=== PATIENT | male | born 2000 | race Caucasian/White ===

== ENCOUNTER 2021-06-28 13:36 | Outpatient (REF) | payer BC, SELFPAY ==
[2021-06-28 15:30] LABS: Binax Internal Control QC Valid; Binax Lot number: 9864; Binax Now Covid-19 Ag Negative (Negative)
== END 2021-06-28 13:37 | disposition home or self-care (01) ==
LOC: HO.LAB 13:36
PROVIDERS: Visit Provider Internal Medicine
DX: Z20.822 Contact with and (suspected) exposure to COVID-19 (principal)
CPT/HCPCS: 36415; C9803

== ENCOUNTER 2023-09-06 10:55 | Outpatient (AMB) | payer BC, SELFPAY ==
[2023-09-06 10:58] VITALS: BP 120/78; PULSE 80; O2SAT 98; BMI 24.7
--- NOTE | 2023-09-06 10:58 | MHC.PC.OV ---
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 Will order labs. 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 1. Little interest or pleasure in doing things: more than half the days 2. Feeling down, depressed, or hopeless: more than half the days 3. Trouble falling or staying asleep, or sleeping too much: more than half the days 4. Feeling tired or having little energy: more than half the days 5. Poor appetite or overeating: more than half the days 6. Feeling bad about yourself - or that you are a failure or have let yourself or your family down: nearly every day 7. Trouble concentrating on things, such as reading the newspaper or watching television: several days 8. Moving or speaking so slowly that other people could have noticed. Or the opposite - being so fidgety or restless that you have been moving around a lot more than usual: not at all 9. Thoughts that you would be better off or of hurting yourself in some way: not at all Total score: 14 Depression Screening Interpretation: Positive (will have BH contact pt) Depression Screening Done: Yes 49440 - PHQ-9 Billing: Yes Source: Developed by Drs. Klaus Riggins, Jourdan Fernandez and colleagues, with an educational santino from [employer]. Thrive Questionnaire Date Thrive assessed: 09/06/23 I am a: Patient What is your living situation today?: I have a steady place to live Within the past 12 months, did the food you bought not last and you didn't have the money to get more?: Never true Within the past 12 months, did you worry whether your food would run out before you got money to buy more?: Never true Do you have trouble paying for medicines?: No Do you have trouble getting transportation to medical appointments?: No Do you have trouble paying your heating and electricity bill?: No Do you have trouble taking care of your child, family member or friend?: No Do you have trouble with day-to-day activities such as bathing, preparing meals, shopping, managing finances, etc.?: No Are you currently unemployed and looking for a job?: No Are you interested in more education?: No Please select the resources that you would like help with: None Currently or been in a relationship where the following occur: no concerns reported THRIVE Score: 0 JOAQUIN-7 AMB Questionnaire JOAQUIN-7 Date JOAQUIN - 7 assessed: 09/06/23 Feeling nervous, anxious, or on edge: 3 = Nearly every day Not being able to stop or control worryin = Nearly every day Worrying too much about different things: 3 = Nearly every day Trouble relaxin = Nearly every day Being so restless that it is hard to sit still: 1 = Several days Becoming easily annoyed or irritable: 1 = Several days Feeling afraid as if something awful might happen: 3 = Nearly every day Total JOAQUIN-7 score (0-4 normal; 5-9 mild; 10-14 moderate; 15-21 severe): 17 Source: Developed by Drs. Klaus Riggins, Jourdan Fernandez and colleagues, with an educational santino from [employer]. JOAQUIN-7 Assessment Billing JOAQUIN-7 Assessment Tool: JOAQUIN-7 Assessment 52236 Review of Systems Const Denies chills and Denies fever(s) Eyes Denies blurry vision ENT Denies vertigo, Denies dizziness and Denies sore throat Card Denies chest pain at rest, Denies chest pain with activity, Denies diaphoresis, Denies dyspnea and Denies dyspnea on exertion Resp Denies cough, Denies dyspnea, Denies dyspnea on exertion and Denies wheezing GI Denies abdominal pain, Denies melena, Denies hematochezia, Denies constipation, Denies diarrhea and Denies loose stools Denies hematuria Musc Denies numbness and Denies tingling Skin/Breast Denies lesions Neuro Denies vertigo, Denies dizziness, Denies numbness and Denies tingling Psych Denies anxiety, Denies depression, Denies homicidal ideation, Denies suicidal ideation and Denies other (substance abuse) Aller/Immun Denies wheezing Physical exam (Primary Care) Vital Signs: Last Vital Signs Pulse 80 09/06/23 10:58 BP 120/78 09/06/23 10:58 Pulse Ox 98 09/06/23 10:58 Oxygen Delivery Method Room Air 09/06/23 10:58 BMI result Body Mass Index 24.7 Tobacco/Smoking Status: Tobacco use Status Tobacco use date assessed 09/06/23 09/06/23 11:01 Patient Tobacco Use Status Never used Tobacco 09/06/23 11:00 e-Cigarette/Vaping Use Never Used 09/06/23 11:00 Depression Screening Interpretation: Positive (will have BH contact pt) Thrive Assessment: Date of Thrive Assessment Date Thrive assessed 09/03/22 09/06/23 11:00 Currently or been in a relationship where the following occur: no concerns reported Const General: cooperative Nutritional Appearance: well nourished Orientation/consciousness: patient oriented x3 HENMT Head: Yes normal to inspection, Yes normocephalic and Yes atraumatic Ears: TM's normal bilaterally Eyes General: appearance normal, both eyes and all related structures Alignment and Position: alignment normal and position normal Neck Neck: Yes normal visual inspection and Yes no lymphadenopathy Thyroid: Thyroid normal Resp Effort & Inspection: normal respiratory effort Auscultation: clear to auscultation bilaterally Cardio Rate: regular rate Rhythm: regular rhythm Heart sounds: S1 normal heart sound present, S2 normal heart sound present and no murmurs GI Palpation (GI): Soft to palpation and nontender Auscultation: normal bowel sounds Male General Exam: Yes normal external exam Penis: normal penis Scrotum: scrotum normal, testes descended bilaterally and no inguinal hernias Testes: no testicular mass Skin Rashes: no rashes Neuro General: patient oriented x3, moves all extremities, no focal motor deficits and deep tendon reflexes 2+ bilaterally Romberg Test: Negative Extrem Right lower extremity: no edema Left lower extremity: no edema Psych Appearance: grossly normal Mental Status: mental status grossly normal Speech and movement: Normal speech and movement present Affect: normal affect Attitude: cooperative Thought process: Normal thought process present Thought content: Normal thought content present Insight: Good insight present (Psych) Judgement: Good judgement present (Psych) Assessment and Plan Assessment & Plan (1) Physical exam: Code(s): Z. - Encounter for general adult medical examination without abnormal findings Plan: labs ordered (2) Anxiety and depression: Code(s): F41.9 - Anxiety disorder, unspecified; F32.A - Depression, unspecified Plan: will have our team contact pt, denies any si or hi Plan The patient agreed to the use of a medical radiation tech for this encounter. Scribed for ISADORA Franklin by Aimee Macdonald medical radiation tech, on 09/06/2023 at 11:15 EST. Orders: Orders Complete Blood Count Auto Diff Today Z. - Encounter for general adult medical examination without abnormal findings Comprehensive [place]. Panel Fast Today . - Encounter for general adult medical examination without abnormal findings Lipid Panel Today Z. - Encounter for general adult medical examination without abnormal findings Complete Blood Count Auto Diff 11 Months . - Encounter for general adult medical examination without abnormal findings Comprehensive [place]. Panel Fast 11 Months . - Encounter for general adult medical examination without abnormal findings TSH reflex Free T4 11 Months Z. - Encounter for general adult medical examination without abnormal findings UA CC w/rflx Micro + Cult 11 Months Z. - Encounter for general adult medical examination without abnormal findings TSH reflex Free T4 Today Z.00 - Encounter for general adult medical examination without abnormal findings UA CC w/rflx Micro + Cult Today Z. - Encounter for general adult medical examination without abnormal findings Lipid Panel 11 Months Z00.00 - Encounter for general adult medical examination without abnormal findings Coding Level of Care Code Est Pt Prev Care 18-39y(15766) Diagnoses Physical exam Z00.00 Anxiety and depression F41.9; F32.A Additional Codes JOAQUIN-7 Assessment Billing - JOAQUIN-7 Assessment Tool: JOAQUIN-7 Assessment 65983 ([id number])
== END 2023-09-06 11:18 | disposition home or self-care (01) ==
PROVIDERS: Visit Provider Nurse Practitioner Family
DX: Z00.00 Encounter for general adult medical examination without abnormal findings (principal); F41.9 Anxiety disorder, unspecified; F32.A Depression, unspecified
CPT/HCPCS: 99395

== ENCOUNTER 2023-12-27 09:38 | Outpatient (AMB) | payer BC, SELFPAY ==
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
[2023-12-27 10:25] VITALS: BP 122/80; PULSE 77; TEMP 36.6; O2SAT 99; BMI 25.6
--- NOTE | 2023-12-27 10:25 | AM.OFFWIN_ITS ---
Intake Vital Signs 12/27/23 10:25 Height 5 ft 4 in Weight 149 lb 6 oz BMI 25.6 BP 122/80 Blood Pressure Location Lt brachial Position Sitting Pulse 77 Pulse Source Pulse Oximeter Temp 97.8 F Temp Source Oral Pulse Oximetry (%) 99 Oxygen Delivery Method Room Air Intake Visit Reasons: EP cough, chest pain due to cough Intake Note: pt is here for cough, chest tightness due to cough Patient Tobacco Use Status: Never used Tobacco Allergies No Known Allergies Allergy (Verified 12/27/23 10:25) Do you need a note to return to daycare/school/sports/work: No HPI HPI Comments History of Present Illness Details Patient is a 23-year-old male complaining a lingering cough times 3-4 weeks. He states he was really sick about a 3-4 weeks ago with body aches, a belly ache, a cough and a stuffy head but that all resolved and he just has a lingering cough. He describes the cough as a dry cough which is worse at night. He states he tried taking a liquid medication, he is unsure what that medication is but that it did not help. 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 He denies any fevers, chest pain, shortness of breath, head congestion, ear pain or sinus pain. 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 Current occupational exposures/hazards: No Cognitive needs: No Hearing needs: No Vision needs: No Review of Systems Const All systems reviewed & are unremarkable except as noted in HPI and below Physical Exam Vital Signs: Last Vital Signs Temp 97.8 F 12/27/23 10:25 Pulse 77 12/27/23 10:25 BP 122/80 12/27/23 10:25 Pulse Ox 99 12/27/23 10:25 Oxygen Delivery Method Room Air 12/27/23 10:25 BMI result Body Mass Index 25.6 Const General: cooperative, healthy appearing, comfortable and no acute distress Orientation/consciousness: patient oriented x3 Limitations: no limitations HEENT Head: Yes normal to inspection Ears: external ears normal and TM's normal bilaterally General nose exam: Normal external nose present, Normal nares present and No nasal discharge present Face and sinus: Yes normal facial exam and Yes sinuses nontender Mouth: Normal oral and palatal mucosa present and moist mucous membranes Throat: Yes posterior oropharynx abnormal (Erythematous) Eyes General: appearance normal, both eyes and all related structures Neck Neck: Yes normal visual inspection Resp Effort & Inspection: normal respiratory effort, able to speak in complete sentences, Actively coughing, no respiratory distress, not tachypneic, no tripod positioning and no use of accessory muscles Auscultation: clear to auscultation bilaterally Cardio Rate: regular rate Rhythm: regular rhythm Heart sounds: normal S1 and S2 Skin General skin exam: no rashes or lesions noted Neuro General: patient oriented x3 Extrem General: Yes normal to inspection and Yes no clubbing, cyanosis or edema Assessment & Plan Assessment & Plan (1) Atypical pneumonia: Code(s): J18.9 - Pneumonia, unspecified organism Plan: sent zpak and inhaler to pharmacy. Patient wanted me to fill out [place] paperwork, I did not feel it was necessary but told him if he does, I recommended he follow-up with his PCP. He states he feels like he can go to work but his employer gave it to him to have it filled out. Plan see above Medications: New albuterol sulfate 90 mcg/actuation 2 puffs inhalation Q6H PRN 8.5 grams 0RF shortness of breath or wheezing or cough azithromycin For 250 mg dose pack: take 500 mg today (day 1), then 250 mg for 4 days (days 2-5) PO 6 tabs 0RF Coding Level of Care Code Est Pt Level 3 (18805) Diagnoses Atypical pneumonia J18.9
== END 2023-12-27 11:06 | disposition home or self-care (01) ==
PROVIDERS: PCP Nurse Practitioner Family; Visit Provider Physician Assistant
DX: J18.9 Pneumonia, unspecified organism (principal)
CPT/HCPCS: 99213

== ENCOUNTER 2024-02-24 08:02 | Outpatient (AMB) | payer BC, SELFPAY ==
[2024-02-24 08:09] VITALS: BP 130/80; PULSE 118; O2SAT 98; BMI 26.4
--- NOTE | 2024-02-24 08:09 | MHC.OFFWIV ---
Intake Vital Signs 02/24/24 08:09 02/24/24 08:43 Height 5 ft 4 in Weight 154 lb BMI 26.4 BP 130/80 Blood Pressure Location Rt brachial Position Sitting Pulse 118 H 92 Pulse Source Pulse Oximeter Pulse Oximeter Pulse Oximetry (%) 98 Oxygen Delivery Method Room Air Intake Visit Reasons: EP-stomach pain, unable to digest food Intake Note: Patient here for stomach pain and issues digesting food which has been going on for about 3-4 days. Patient Tobacco Use Status: Never used Tobacco Allergies No Known Allergies Allergy (Verified 02/24/24 08:11) Do you need a note to return to daycare/school/sports/work: No HPI HPI Comments History of Present Illness Details Patient is a 23-year-old male complaining of abdominal uncomfortableness in his upper abdomen for the last 3-4 days. He states 4 days ago he had some diarrhea, he denies any bloody or black stools but he states that seems to have resolved and his stools are now formed. However, he states that he has this uncomfortableness and sharp shooting pains when he eats. He states that yesterday all he ate was some applesauce and some bread. He tried to take some Tums but that did not help. 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 He denies any fevers, nausea or vomiting. 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 Current occupational exposures/hazards: No Cognitive needs: No Hearing needs: No Vision needs: No Review of Systems Const All systems reviewed & are unremarkable except as noted in HPI and below Physical Exam Vital Signs: Last Vital Signs Pulse 118 H 02/24/24 08:09 BP 130/80 02/24/24 08:09 Pulse Ox 98 02/24/24 08:09 Oxygen Delivery Method Room Air 02/24/24 08:09 BMI result Body Mass Index 26.4 Const General: cooperative, healthy appearing, comfortable, no acute distress and well developed Orientation/consciousness: patient oriented x3 Limitations: no limitations HEENT Head: Yes normal to inspection Ears: hearing grossly normal bilaterally General nose exam: Normal external nose present Face and sinus: Yes normal facial exam Eyes General: appearance normal, both eyes and all related structures Neck Neck: Yes normal visual inspection and Yes full ROM Resp Effort & Inspection: normal respiratory effort and able to speak in complete sentences Auscultation: clear to auscultation bilaterally Cardio Rate: regular rate Rhythm: regular rhythm Heart sounds: normal S1 and S2 GI Other: Negative Cabral's Inspection: Yes normal to inspection Palpation (GI): Soft to palpation, nontender, no guarding, No hepatosplenomegaly present and No Rebound tenderness present Skin General skin exam: no rashes or lesions noted Neuro General: patient oriented x3 Extrem General: Yes normal to inspection Assessment & Plan Assessment & Plan (1) Abdominal pain: Code(s): R10.9 - Unspecified abdominal pain Qualifiers: Abdominal location: upper abdomen, unspecified Qualified Code(s): R10.10 - Upper abdominal pain, unspecified Plan: Recheck of heart rate was 92 and regular. Likely secondary to the energy drink he drank a few hours ago. His symptoms seem to be resolving, recommended cutting back on the energy drinks and starting a BRAT diet. He could also try some Pepto-Bismol or Gas-X for symptomatic relief. Advised if his abdominal pain gets worse or he is unable to eat or drink, he should go to the emergency department. (2) Viral gastroenteritis: Code(s): A08.4 - Viral intestinal infection, unspecified Plan: see above Plan see above Coding Level of Care Code Est Pt Level 3 (25027) Diagnoses Pain of upper abdomen R10.10 Abdominal location: upper abdomen, unspecified Viral gastroenteritis A08.4
[2024-02-24 08:43] VITALS: PULSE 92
== END 2024-02-24 08:57 | disposition home or self-care (01) ==
PROVIDERS: PCP Nurse Practitioner Family; Visit Provider Physician Assistant
DX: R10.10 Upper abdominal pain, unspecified (principal); A08.4 Viral intestinal infection, unspecified
CPT/HCPCS: 99213

== ENCOUNTER 2024-09-26 10:45 | Outpatient (AMB) | payer BC, SELFPAY ==
[2024-09-26 10:47] VITALS: BP 142/80; PULSE 134; O2SAT 98; BMI 27.1
--- NOTE | 2024-09-26 10:47 | A.OFFPC_ITS ---
Vital Signs 09/26/24 10:47 Height 5 ft 4 in Weight 158 lb BMI 27.1 BP 142/80 H Blood Pressure Location Lt brachial Position Sitting Pulse 134 H Pulse Source Pulse Oximeter Pulse Oximetry (%) 98 Oxygen Delivery Method Room Air Intake Visit Reasons: PE Ear Specialist Required: No Accompanied by: Self / Same As Patient Allergies No Known Allergies Allergy (Verified 09/26/24 11:45) Medication List - Last Reconciled 09/26/24 by CHARLOTTE Pritchett buspirone 5 mg PO BID 30 days Tobacco use date assessed: 09/26/24 Dental Screening Dental Screen Date: 09/26/24 Did you have a dental visit in the last 12 months?: Yes Did you have a dental problem in the last 6 months where you did not have access to dental care?: No Was dental information given to patient?: Patient has dentist HPI PE HPI Details History of Present Illness The patient is a 23-year-old male presenting with anxiety. He expresses ongoing underlying anxiety, specifically noting increased stress when visiting medical offices. He reports that he is feeling very anxious today, which is visibly noticeable in the room. The patient denies having experiences of depression, suicidal ideation, or homicidal thoughts. Anxiety appears to be a chronic issue for him, especially in healthcare environments. While he has sinus tachycardia, he denies any associated chest pain, difficulty breathing, abdominal discomfort, or gastrointestinal issues like constipation or diarrhea. His anxiety does not seem to have been managed by any treatment prior to this visit. Health Maintenance Social History - Employment, housing, and education sta tus: Not discussed - Family status and planning: Not discus sed - Substance use: Not discussed - Exercise and activity level: Not discu ssed - Nutritional intake: Not discussed - Weight management: Not discussed Review of Systems - Cardiovascular: Denies chest pain or s hortness of breath. - Gastrointestinal: Denies abdominal buck n, bowel movement changes, including constipation and diarrhea. - Psychiatric: Reports anxiety; denies d epression, suicidal ideation, and homicidal thoughts. Physical Exam General: Cooperative, healthy appearing, anxious, no acute distress and well developed Orientation: Patient oriented x3 Limitations: No limitations Head: Normal to inspection Ears: Hearing grossly normal bilaterally Nose: Normal external nose present Face and sinus: Normal facial exam Eyes: Appearance normal, both eyes and all related structures Neck: Normal visual inspection and Yes full ROM Respiratory: Normal respiratory effort and able to speak in complete sentences. Clear to auscultation bilaterally Cardiovascular: Sinus tachycardia GI: Normal to inspection. Soft to palpation and nontender Skin: No rashes or lesions noted Neuro: Patient oriented x3 Extremities: Normal to inspection Results - EKG: Performed today, revealing sinus tachycardia. Plan To manage the patient's anxiety, I have initiated a low-dose regimen of buspirone. This is chosen due to its specific benefits in treating anxiety without the dependency risks seen with other medications such as benzodiazepines. Monitoring the patient's response to medication is planned with a follow-up appointment via telehealth in two months. The anxiety-related sinus tachycardia will also be observed to determine if it decreases as the anxiety is managed. There is no current plan for direct intervention concerning the sinus tachycardia, as it is presumed secondary to anxiety. The potential benefits, risks, and side effects of buspirone were discussed to ensure the patient's comprehension. Discussion Notes I discussed with the patient the initiation of buspirone, a non-benzodiazepine anxiolytic, explaining it was chosen to manage his anxiety due to its lower risk of dependency. The benefits, including an expected reduction in anxiety symptoms and potential improvement in sinus tachycardia as his anxiety level decreases, were highlighted. Side effects of buspirone, such as dizziness or nausea, were explained, and the patient was advised to report any adverse effects. The patient agreed to the treatment plan, and a follow-up telehealth visit in two months was scheduled. We will reassess the anxiety and sinus tachycardia at that time, adjusting treatment as needed based on his response to buspirone. Patient Instructions - Start taking buspirone as directed. - Monitor for any side effects like dizz iness or nausea and report them if they occur. - Attend follow-up telehealth appointizaiah campuzano in approximately two months. - Continue monitoring heart rate and anx iety levels for any changes. - Seek immediate attention if experienci ng severe chest pain, difficulty breathing, or other concerning symptoms. 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 1. Little interest or pleasure in doing things: not at all 2. Feeling down, depressed, or hopeless: not at all 3. Trouble falling or staying asleep, or sleeping too much: not at all 4. Feeling tired or having little energy: not at all 5. Poor appetite or overeating: not at all 6. Feeling bad about yourself - or that you are a failure or have let yourself or your family down: not at all 7. Trouble concentrating on things, such as reading the newspaper or watching television: not at all 8. Moving or speaking so slowly that other people could have noticed. Or the opposite - being so fidgety or restless that you have been moving around a lot more than usual: not at all 9. Thoughts that you would be better off or of hurting yourself in some way: not at all Total score: 0 Depression Screening Interpretation: Negative Depression Screening Done: Yes 66832 - PHQ-9 Billing: Yes Source: Developed by Drs. Klaus Riggins, Liz Chapman, Jourdan Cerda and colleagues, with an educational santino from [employer]. Thrive Questionnaire Date Thrive assessed: 09/26/24 I am a: Patient What is your living situation today?: I have a steady place to live Within the past 12 months, did the food you bought not last and you didn't have the money to get more?: Never true Within the past 12 months, did you worry whether your food would run out before you got money to buy more?: Never true Do you have trouble paying for medicines?: No Do you have trouble getting transportation to medical appointments?: No Do you have trouble paying your heating and electricity bill?: No Do you have trouble taking care of your child, family member or friend?: No Do you have trouble with day-to-day activities such as bathing, preparing meals, shopping, managing finances, etc.?: No Are you currently unemployed and looking for a job?: No Are you interested in more education?: No Please select the resources that you would like help with: None Currently or been in a relationship where the following occur: No concerns reported THRIVE Score: 0 AUDIT C Alcohol Use Questionnaire (AUDIT-C) 1. How often do you have a drink containing alcohol?: 2-4 times a month 2. How many drinks containing alcohol do you have on a typical day when you are drinking?: 3 or 4 3. How often do you have six or more drinks on one occasion?: Less than monthly Total Score: 4 Score Reviewed/Action Taken: Yes JOAQUIN-7 AMB Questionnaire JOAQUIN-7 Date JOAQUIN - 7 assessed: 09/26/24 Feeling nervous, anxious, or on edge: 1 = Several days Not being able to stop or control worryin = Several days Worrying too much about different things: 1 = Several days Trouble relaxin = Several days Being so restless that it is hard to sit still: 1 = Several days Becoming easily annoyed or irritable: 0 = Not at all Feeling afraid as if something awful might happen: 0 = Not at all Total JOAQUIN-7 score (0-4 normal; 5-9 mild; 10-14 moderate; 15-21 severe): 5 Source: Developed by Drs. Klaus Riggins, Liz Chapman, Jourdan Cerda and colleagues, with an educational santino from [employer]. JOAQUIN-7 Assessment Billing JOAQUIN-7 Assessment Tool: JOAQUIN-7 Assessment 81258 Physical exam (Primary Care) Vital Signs: Last Vital Signs Pulse 134 H 09/26/24 10:47 BP 142/80 H 09/26/24 10:47 Pulse Ox 98 09/26/24 10:47 Oxygen Delivery Method Room Air 09/26/24 10:47 BMI result Body Mass Index 27.1 Tobacco/Smoking Status: Tobacco use Status Tobacco use date assessed 09/26/24 09/26/24 10:49 Patient Tobacco Use Status Never used Tobacco 09/26/24 10:49 e-Cigarette/Vaping Use Never Used 09/26/24 10:49 PHQ-9: PHQ-9 Score PHQ-9: Total score 0 09/26/24 10:49 Depression Screening Interpretation: Negative Thrive Assessment: Date of Thrive Assessment Date Thrive assessed 04/01/25 04/01/25 10:49 Currently or been in a relationship where the following occur: No concerns reported Coding Level of Care Code Est Pt Prev Care 18-39y(07570) Diagnoses Physical exam Z00.00 Additional Codes JOAQUIN-7 Assessment Billing - JOAQUIN-7 Assessment Tool: JOAQUIN-7 Assessment 20545 ([id number]) PHQ-9 - 30823 - PHQ-9 Billing: Yes ([id number]) Assessment & Plan Assessment & Plan (1) Physical exam: Code(s): Z00.00 - Encounter for general adult medical examination without abnormal findings Category: Medical Plan . Orders: Orders Comprehensive Gilbert. Panel Fast Today Z00.00 - Encounter for general adult medical examination without abnormal findings TSH reflex Free T4 Today Z00.00 - Encounter for general adult medical examination without abnormal findings Complete Blood Count Auto Diff Today Z00.00 - Encounter for general adult medical examination without abnormal findings UA CC w/rflx Micro + Cult Today Z00.00 - Encounter for general adult medical examination without abnormal findings Lipid Panel Today Z00.00 - Encounter for general adult medical examination without abnormal findings Medications: New buspirone 5 mg PO BID 30 days 60 tabs 2RF
== END 2024-09-26 11:40 | disposition home or self-care (01) ==
LOC: HO.HMCC 10:46
PROVIDERS: PCP Nurse Practitioner Family; Visit Provider Nurse Practitioner Family
DX: Z00.00 Encounter for general adult medical examination without abnormal findings (principal)

== ENCOUNTER → 2024-09-26 10:45 | Outpatient (BNVA) | payer BC, SELFPAY | PROVIDERS: PCP Nurse Practitioner Family; Visit Provider Nurse Practitioner Family | DX: Z00.00 Encounter for general adult medical examination without abnormal findings (principal); F41.9 Anxiety disorder, unspecified | CPT/HCPCS: 96127 ==

== ENCOUNTER 2024-10-24 12:53 | Outpatient (AMB) | payer BC, SELFPAY ==
--- NOTE | 2024-10-24 12:55 | MHC.PC.OV ---
Vital Signs 10/24/24 12:56 10/24/24 13:25 Height 5 ft 4 in Weight 166 lb 2 oz BMI 28.5 BP 142/90 H 136/80 Blood Pressure Location Lt brachial Lt brachial Position Sitting Sitting Pulse 106 H Pulse Source Pulse Oximeter Pulse Oximetry (%) 99 Oxygen Delivery Method Room Air Intake Visit Reasons: urology referral & forms Allergies No Known Allergies Allergy (Verified 10/24/24 13:14) Medication List - Last Reconciled 10/24/24 by ISADORA Pritchett buspirone 7.5 mg PO BID 30 days Tobacco use date assessed: 10/24/24 Dental Screening Dental Screen Date: 10/24/24 Did you have a dental visit in the last 12 months?: Yes Did you have a dental problem in the last 6 months where you did not have access to dental care?: No Was dental information given to patient?: Patient has dentist HPI urology referral & forms HPI Details Chief Complaint Persistent urinary frequency alongside management of anxiety symptoms. History of Present Illness The patient is a 23-year-old male presenting with follow-up for anxiety management and persistent urinary frequency. Recently, initiation of buspirone at 5 mg twice daily has occurred for anxiety symptoms, which he reports has had a beneficial effect. Despite improvement in anxiety, urinary frequency persists with occurrences reaching 10 to 12 times daily, though he denies associated dysuria or other urinary symptoms. The patient recognizes potential anxiety influences on these urinary symptoms yet considers referral for further urological evaluation necessary to ascertain the underlying cause. An emphasized need for lab work completion, including urinalysis, remains as per an earlier order. NOTE: he did notice a slight decrease in urinary frequency with use of buspirone. Social History Health Maintenance Review of Systems - Psychiatric: Reports anxiety; denies suicidal or homicidal ideations. - Genitourinary: Reports frequent urination (10-12 times a day); denies dysuria. Physical Exam General: Cooperative, healthy appearing, comfortable, no acute distress and well developed Orientation: Patient oriented x3 Limitations: No limitations Head: Normal to inspection Ears: Hearing grossly normal bilaterally Nose: Normal external nose present Face and sinus: Normal facial exam Eyes: Appearance normal, both eyes and all related structures Neck: Normal visual inspection and Yes full ROM Respiratory: Normal respiratory effort and able to speak in complete sentences. Clear to auscultation bilaterally Cardiovascular: Regular rate and rhythm. Normal S1 and S2 GI: Normal to inspection. Soft to palpation and nontender Skin: No rashes or lesions noted Neuro: Patient oriented x3 Extremities: Normal to inspection Results - Labs: Urinalysis ordered but no results discussed. Plan 1. 5 mg twice daily, addressing anxiety effectively. Referral to urology is arranged to evaluate persistent urinary frequency and explore diagnoses like interstitial cystitis. The patient is reminded of the need to complete lab tests, particularly a urinalysis, to aid in further assessment.: Discussion Notes I discussed with the patient the efficacy of buspirone in managing symptoms of anxiety, noting its positive impact to date. A decision was made to increase the dose to 7.5 mg twice daily to further improve anxiety management. We explored the possibility that his urinary frequency may have an anxiety component, though a thorough urological evaluation is warranted to rule out other causes such as interstitial cystitis. I emphasized the importance of completing the urinalysis to aid in diagnosis and discussed the referral process to a urologist. All potential treatment benefits and risks were reviewed, ensuring the patient understands and consents to the proposed management plan. Patient Instructions - Continue taking buspirone, now increased to 7.5 mg, twice daily as prescribed. - Complete the urinalysis lab work as previously ordered. - Follow up with a urologist for further evaluation of urinary frequency. - Monitor urinary symptoms and report any changes or new symptoms promptly. - Return to clinic for follow-up after urology consultation or if symptoms worsen. 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 Current occupational exposures/hazards: No Cognitive needs: No Hearing needs: No Vision needs: No Questionnaire Thrive Questionnaire Date Thrive assessed: 10/24/24 I am a: Patient What is your living situation today?: I have a steady place to live Within the past 12 months, did the food you bought not last and you didn't have the money to get more?: Never true Within the past 12 months, did you worry whether your food would run out before you got money to buy more?: Never true Do you have trouble paying for medicines?: No Do you have trouble getting transportation to medical appointments?: No Do you have trouble paying your heating and electricity bill?: No Do you have trouble taking care of your child, family member or friend?: No Do you have trouble with day-to-day activities such as bathing, preparing meals, shopping, managing finances, etc.?: No Are you currently unemployed and looking for a job?: No Are you interested in more education?: No Please select the resources that you would like help with: None Currently or been in a relationship where the following occur: No concerns reported THRIVE Score: 0 AUDIT C Alcohol Use Questionnaire (AUDIT-C) 1. How often do you have a drink containing alcohol?: 2-4 times a month 2. How many drinks containing alcohol do you have on a typical day when you are drinking?: 3 or 4 3. How often do you have six or more drinks on one occasion?: Less than monthly Total Score: 4 Score Reviewed/Action Taken: Yes JOAQUIN-7 AMB Questionnaire JOAQUIN-7 Date JOAQUIN - 7 assessed: 09/26/24 Source: Developed by Drs. Klaus Riggins, Liz Chapman, Jourdan Cerda and colleagues, with an educational santino from [employer]. Physical exam (Primary Care) Vital Signs: Last Vital Signs Pulse 106 H 10/24/24 12:56 BP 142/90 H 10/24/24 12:56 Pulse Ox 99 10/24/24 12:56 Oxygen Delivery Method Room Air 10/24/24 12:56 BMI result Body Mass Index 28.5 Tobacco/Smoking Status: Tobacco use Status Tobacco use date assessed 10/24/24 10/24/24 12:58 Patient Tobacco Use Status Never used Tobacco 10/24/24 12:58 e-Cigarette/Vaping Use Never Used 10/24/24 12:58 Thrive Assessment: Date of Thrive Assessment Date Thrive assessed 10/24/24 10/24/24 13:02 Currently or been in a relationship where the following occur: No concerns reported Coding Level of Care Code Est Pt Level 3 (64451) Diagnoses Increased urinary frequency R35.0 Anxiety F41.9 Assessment & Plan Assessment & Plan (1) Increased urinary frequency: Code(s): R35.0 - Frequency of micturition Category: Medical Plan: . (2) Anxiety: Code(s): F41.9 - Anxiety disorder, unspecified Category: Medical Plan . Orders: Referrals Urology Referral R35.0 - Frequency of micturition Medications: Changed From buspirone 5 mg PO BID 30 days 60 tabs 2RF To buspirone 7.5 mg PO BID 30 days 60 tabs 3RF
[2024-10-24 12:56] VITALS: BP 142/90; PULSE 106; O2SAT 99; BMI 28.5
[2024-10-24 13:25] VITALS: BP 136/80
== END 2024-10-24 13:33 | disposition home or self-care (01) ==
LOC: HO.HMCC 12:54
PROVIDERS: PCP Nurse Practitioner Family; Visit Provider Nurse Practitioner Family
DX: R35.0 Frequency of micturition (principal); F41.9 Anxiety disorder, unspecified

== ENCOUNTER → 2024-10-24 12:53 | Outpatient (BNVA) | payer BC, SELFPAY | PROVIDERS: PCP Nurse Practitioner Family; Visit Provider Nurse Practitioner Family ==

== ENCOUNTER 2024-11-28 08:02 | Outpatient (REF) | payer BC, SELFPAY ==
[2024-11-28 10:20] LABS: MANUAL DIFF FLAG NO
[2024-11-28 10:45] LABS: Appearance Urine Clear; Basophils Absolute Auto 0.1 X10*3/uL (0.0-0.2); Basophils Percent Auto 1.2 % (0-2); Color Urine Yellow; Eosinophils Absolute Auto 0.3 X10*3/uL (0.0-0.4); Eosinophils Percent Auto 3.9 % (0-4); Glucose Urine UA Negative (Negative); Hematocrit 41.1 % (42.0-52.0); Hemoglobin 14.2 g/dl (14.0-18.0); Imm Gran Abs Auto 0.02 X10*3/uL (0.00-0.03); Imm Gran Pct Auto 0.3 % (0.0-0.4); Leukocyte Esterase Urine Negative (Negative); Lymphocytes Absolute Auto 2.4 X10*3/uL (1.2-4.9); Lymphocytes Percent Auto 32.3 % (20-40); Mean Corpuscular HGB Conc 34.5 g/dl (31.0-36.0); Mean Corpuscular Hemoglobin 30.5 pg (27.0-33.0); Mean Corpuscular Volume 88.4 fL (80.0-98.0); Mean Platelet Volume 10.1 fL (9.4-12.4); Monocytes Absolute Auto 0.5 X10*3/uL (0.1-1.2); Neutrophils Absolute Auto 4.3 x10*3/uL (2.0-8.3); Neutrophils Percent Auto 56.3 % (45-73); Nitrite Urine Negative (Negative); Platelet Count 318 X10*3/uL (160-400); Red Blood Count 4.65 X10*6/uL (4.60-5.80); Red Cell Distribution Width 12.1 % (11.0-16.0); Specific Gravity - Urine >= 1.030 (1.005-1.025); Urine Blood Negative (Negative); Urine Ketones Trace mg/dL (Negative); Urine Protein Negative (Neg-Trace); White Blood Count 7.5 X10*3/uL (4.8-10.8)
[2024-11-28 11:28] LABS: Alanine Aminotransferase 24 U/L (0-40); Albumin Level 4.7 g/dL (3.5-5.0); Alkaline Phosphatase 60 U/L (39-117); Anion Gap 9 (12-20); Aspartate Amino Transferase 29 U/L (5-37); Bilirubin Total 0.8 mg/dL (0.0-1.0); Blood Urea Nitrogen 13 mg/dL (9-16); Calcium 9.7 mg/dL (8.4-10.2); Carbon Dioxide 29 mmol/L (22-29); Chloride 107 mmol/L (96-108); Cholesterol 159 mg/dL (<200); Estimated Glomerular Filt Rate > 60; Glucose Fasting 93 mg/dL (60-99); HDL Cholesterol 51 mg/dL (>40); LDL Cholesterol Calculated 100 mg/dL (<100); Sodium 141 mmol/L (135-145); Triglycerides 44 mg/dL (<150)
[2024-11-28 11:46] LABS: TSH reflex Free T4 3.33 uIU/mL (0.32-4.0)
== END 2024-11-28 08:03 | disposition home or self-care (01) ==
LOC: HO.HMGCLDS 08:02
PROVIDERS: PCP Nurse Practitioner Family; Visit Provider Nurse Practitioner Family
DX: Z00.00 Encounter for general adult medical examination without abnormal findings (principal); Z13.6 Encounter for screening for cardiovascular disorders
CPT/HCPCS: 36415; 80053; 80061; 81003; 84443; 85025

== ENCOUNTER 2024-11-29 07:06 | Outpatient (AMB) | payer BC, SELFPAY ==
--- NOTE | 2024-11-29 08:11 | MHC.PC.OV ---
Intake Visit Reasons: 2m f/u Allergies No Known Allergies Allergy (Verified 10/24/24 13:14) Tobacco use date assessed: 10/24/24 Dental Screening Dental Screen Date: 10/24/24 HPI 2m f/u HPI Details History of Present Illness The patient is a 24-year-old male presenting with follow-up for anxiety management. Over the past two months, he has been on buspirone 7.5 mg, and he reports some positive changes and feels slightly improved. He denies any symptoms such as fever, chills, blurred vision, or panic attacks. He also denies suicidal and homicidal ideation. Recent laboratory assessments were benign with no significant abnormalities noted. Review of Systems - Constitutional: Denies fever, chills - Neurological: Denies blurred vision - Psychiatric: Reports improvement in anxiety; Denies panic attacks, suicidal ideation, homicidal ideation Plan 1. 5 months to evaluate the effectiveness of the treatment adjustment and to consider further modifications if needed.: Discussion Notes I discussed with the patient the proposed increase in buspirone dosage to 10 mg twice daily, emphasizing the potential for enhanced symptom management. We evaluated the benefits, including more effective anxiety control, and weighed the risks, such as possible side effects like dizziness. We talked about observing any adverse effects and adjusting the plan accordingly. A follow-up in 2.5 months was agreed upon to reassess the treatment's effectiveness and make necessary alterations. Patient Instructions - Take buspirone 10 mg twice a day as prescribed. - Monitor for any side effects, such as dizziness or stomach upset. - Keep a record of any new symptoms or changes in your anxiety. - Follow up with me in 2.5 months to review how you are doing. - Contact the office sooner if you experience any concerning symptoms or side effects. 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 Current occupational exposures/hazards: No Cognitive needs: No Hearing needs: No Vision needs: No Questionnaire Thrive Questionnaire Date Thrive assessed: 10/24/24 I am a: Patient What is your living situation today?: I have a steady place to live Within the past 12 months, did the food you bought not last and you didn't have the money to get more?: Never true Within the past 12 months, did you worry whether your food would run out before you got money to buy more?: Never true Do you have trouble paying for medicines?: No Do you have trouble getting transportation to medical appointments?: No Do you have trouble paying your heating and electricity bill?: No Do you have trouble taking care of your child, family member or friend?: No Do you have trouble with day-to-day activities such as bathing, preparing meals, shopping, managing finances, etc.?: No Are you currently unemployed and looking for a job?: No Are you interested in more education?: No Please select the resources that you would like help with: None Currently or been in a relationship where the following occur: No concerns reported THRIVE Score: 0 JOAQUIN-7 AMB Questionnaire JOAQUIN-7 Date JOAQUIN - 7 assessed: 09/26/24 Source: Developed by Drs. Klaus Riggins, Liz Chapman, Jourdan Cerda and colleagues, with an educational santino from [employer]. Physical exam (Primary Care) Tobacco/Smoking Status: Tobacco use Status Tobacco use date assessed 10/24/24 10/24/24 12:58 Patient Tobacco Use Status Never used Tobacco 10/24/24 12:58 e-Cigarette/Vaping Use Never Used 10/24/24 12:58 Thrive Assessment: Date of Thrive Assessment Date Thrive assessed 10/24/24 10/24/24 13:02 Currently or been in a relationship where the following occur: No concerns reported Coding Level of Care Code Tele Est Pt Level 3 (41835) Diagnoses Anxiety F41.9 Assessment & Plan Assessment & Plan (1) Anxiety: Code(s): F41.9 - Anxiety disorder, unspecified Category: Medical Plan . Medications: Changed From buspirone 7.5 mg PO BID 30 days 60 tabs 3RF To buspirone 10 mg PO BID 60 tabs 3RF 30 days
== END 2024-11-29 08:16 | disposition home or self-care (01) ==
LOC: HO.HMCC 07:06
PROVIDERS: PCP Nurse Practitioner Family; Visit Provider Nurse Practitioner Family
DX: F41.9 Anxiety disorder, unspecified (principal)

== ENCOUNTER → 2024-11-29 07:06 | Outpatient (BNVA) | payer BC, SELFPAY | PROVIDERS: PCP Nurse Practitioner Family; Visit Provider Nurse Practitioner Family | DX: Z13.89 Encounter for screening for other disorder (principal) ==

== ENCOUNTER 2025-03-02 11:00 | Outpatient (AMB) | payer BC, SELFPAY ==
--- NOTE | 2025-03-02 11:03 | A.OFFVIS_ITS ---
Intake Visit Reasons: urinary frequency Intake Note: patient presents today for: new pt urinary frequency urology medications: none blood thinners: none today's PVR: 25mls Malariologist Required: No Accompanied by: Self / Same As Patient Allergies No Known Allergies Allergy (Verified 03/02/25 11:03) HPI Comments Details: Rosas is a pleasant male. He is a patient of Dr. Hollis. 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 Current occupational exposures/hazards: No Cognitive needs: No Hearing needs: No Vision needs: No Review of Systems Const Denies chills and Denies fever(s) Card Reports no additional complaints and Denies syncope Resp Denies cough GI Denies abdominal pain and Denies heartburn Reports as per HPI and Denies change in libido Neuro Denies syncope Psych Denies change in libido Endo Denies change in libido Physical Exam Const General: cooperative, healthy appearing, comfortable and no acute distress Orientation/consciousness: patient oriented x3 HEENT Face and sinus: Yes normal facial exam Mouth: moist mucous membranes Neck Neck: Yes normal visual inspection, Yes full ROM and Yes trachea midline Chest Chest palpation & inspection: normal inspection of the chest Resp Effort & Inspection: normal respiratory effort, able to speak in complete sentences and no respiratory distress GI Inspection: Yes normal to inspection Back/Spine/Pelvis Cervical Spine: normal cervical lordosis Thoracic/Lumbar Spine: thoracic and lumbar spine normal to inspection Skin General skin exam: no rashes or lesions noted Neuro General: patient oriented x3, gait normal, tone normal and moves all extremities Extrem General: Yes normal to inspection and Yes capillary refill normal Office Procedures Post Void Residual Post Residual Void Post Void Residual (PVR): 25 [id number] Void Residual by ultrasound Results AMB Urinalysis, Automated UA Leukoctes 0 Chavez/uL Last Edit by MIKY Julian on 03/02/25 11:16 UA Nitrite Negative Last Edit by Geri Newberry [facility] on 03/02/25 11:16 UA Urobilinogen 0.2 mg/dL Last Edit by Geri Newberry [facility] on 03/02/25 11:1 6 UA Protein 0 mg/dL Last Edit by Geri Newberry [facility] on 03/02/25 11:16 UA pH 6.5 Last Edit by Geri Newberry [facility] on 03/02/25 11:16 UA Blood 0 Gavino/uL Last Edit by Geri Newberry [facility] on 03/02/25 11:[address] 1.015 Last Edit by Geri Newberry [facility] on 03/02/25 11: 16 UA Ketone Negative Last Edit by Geri Newberry [facility] on 03/02/25 11:16 UA Bilirubin 0 mg/dL Last Edit by Geri Newberry [facility] on 03/02/25 11:16 UA Glucose 0 mg/dL Last Edit by Geri Newberry [facility] on 03/02/25 11:16 Results Reviewed Results Reviewed: Laboratory Last Values Urine pH (Auto) 6.5 03/02/25 11:[address] (Auto) 1.015 03/02/25 11:15 Urine Protein (Auto) 0 mg/dL 03/02/25 11:15 Glucose (UA)(Auto) 0 mg/dL 03/02/25 11:15 Urine Ketones (Auto) Negative 03/02/25 11:15 Urine Blood (Auto) 0 Gavino/uL 03/02/25 11:15 Urine Nitrite (Auto) Negative 03/02/25 11:15 Urine Bilirubin (Auto) 0 mg/dL 03/02/25 11:15 Urine Urobilinogen (Auto) 0.2 mg/dL 03/02/25 11:15 Leukocyte Esterase (Auto) 0 Chavez/uL 03/02/25 11:15 Assessment & Plan Assessment & Plan (1) Bladder outlet obstruction: Code(s): N32.0 - Bladder-neck obstruction Category: Medical Plan Trial alfuzosin Three-month follow-up Uro for Orders: Orders AMB Post Void Residual by ultrasound Today R35.0 - Frequency of micturition AMB Urinalysis Automated Today Z13.9 - Encounter for screening, unspecified Medications: New alfuzosin ER 10 mg PO BEDTIME 30 tabs 2RF 30 days Patient Instructions: This note is constructed using voice recognition software. While every effort has been made to ensure accuracy ems coordinator errors may have been included. Imaging studies, laboratory and physical exam results were discussed and reviewed in detail. No major barriers to patient understanding were identified. An opportunity to ask questions regarding the treatment plan was provided. All questions were answered. The patient expressed understanding and agreement with the above treatment plan. The patient is aware they should contact our office by phone for worsening of their current condition or the appearance of new urologic symptoms. Compliance is encouraged with any medications and followup testing that is ordered. It is a privilege to participate in the urologic care of your patient. If you have any questions or concerns regarding treatment for the above conditions, or other urologic issues, please do not hesitate to contact me. The office telephone contact is [phone]. Sincerely, Dr Tomas Gautam MD, [facility] - Urology Compassionate Specialist Care for the Genitourinary System Coding Level of Care Code New Pt Level 4 (18561) Diagnoses Bladder outlet obstruction N32.0 CPT Codes Post Residual Void - PVR CPT Code: 81996-[id number] Void Residual by ultrasound ([id number])
== END 2025-03-02 11:32 | disposition home or self-care (01) ==
LOC: HO.HUSH 11:01
PROVIDERS: PCP Nurse Practitioner Family; Visit Provider Urology
DX: N32.0 Bladder-neck obstruction (principal); Z13.9 Encounter for screening, unspecified
CPT/HCPCS: 99204

== ENCOUNTER → 2025-03-02 11:00 | Outpatient (BNVA) | payer BC, SELFPAY | PROVIDERS: PCP Nurse Practitioner Family; Visit Provider Urology | DX: R35.0 Frequency of micturition (principal) | CPT/HCPCS: 51798; 81003 ==